=== PATIENT | female | born 1970 ===

== ENCOUNTER 2018-09-07 17:40 | Emergency (ER) | payer MEDICAID, OTHER ==
[2018-09-07 17:40] VITALS: BMI 37.8
[2018-09-07 18:21] LABS: HCG,QUALITATIVE URINE NEGATIVE (NEGATIVE)
[2018-09-07 18:35] LABS: SQUAMOUS EPITHIAL 3 /hpf (0-5); URINE BACTERIA RARE (<OCC); URINE BILIRUBIN NEGATIVE (NEGATIVE); URINE BLOOD NEGATIVE (NEGATIVE); URINE CLARITY Clear (Clear); URINE COLOR Yellow (YELLOW); URINE GLUCOSE (UA) NORMAL (Normal); URINE LEUKOCYTE ESTERASE NEG Leu/uL (Negative); URINE PROTEIN NEGATIVE (NEGATIVE)
--- NOTE | 2018-09-07 20:17 | C.PDOC ---
History Of Present Illness 48 year old female, with history of left ovarian cyst, presents to the ED for evaluation of right-sided pelvic pain radiating to back for 3 days. Patient is also complaining of constipation and light vaginal discharge. Patient states she has been sexually active with one partner. She denies fever, chills, changes in appetite/PO intake. Time Seen by Provider: 09/07/18 18:40 Chief Complaint (Nursing): Female Genitourinary History Per: Patient History/Exam Limitations: no limitations Onset/Duration Of Symptoms: Days (3) Quality Of Discomfort: "Pain" Associated Symptoms: Constipation. denies: Fever, Chills Additional History Per: Patient Past Medical History Reviewed: Historical Data, Nursing Documentation, Vital Signs Vital Signs: Last Vital Signs Temp 98.4 F 09/07/18 17:51 Pulse 89 09/07/18 17:51 Resp 20 09/07/18 17:51 BP 138/84 09/07/18 17:51 Pulse Ox 98 09/07/18 17:51 - Medical History PMH: No Chronic Diseases, Gastritis, Gall Bladder Disease Denies: Depression, Chronic Kidney Disease Surgical History: Cholecystectomy, Endoscopy - [facility] Procedures APPLICATION OF SPLINT (10/09/06) BREAST DX PROCEDURE NEC (02/01/14) DX ULTRASOUND-THORAX NEC (02/01/14) EXCIS KNEE SEMILUN CARTL (08/29/14) INJECT/INFUSE NEC (12/17/13) LAPAROSCOPIC CHOLECYSTECTOMY (12/20/05) LOC EXC BONE LES FEMUR (08/29/14) LOC EXC BONE LES PATELLA (08/29/14) LOCAL EXCIS BREAST LES (02/01/14) OTHER MISC PROCEDURE (05/02/00) PERCUTAN NEEDLE BIOPSY OF BREAST (01/20/14) PRESSURE DRESSING APPLIC (08/16/02) Family History: States: Unknown Family Hx - Social History Hx Tobacco Use: No Hx Alcohol Use: Yes Hx Substance Use: No - Immunization History Hx Tetanus Toxoid Vaccination: No Hx Influenza Vaccination: No Hx Pneumococcal Vaccination: No Review Of Systems Constitutional: Negative for: Fever, Chills Genitourinary: Positive for: Pelvic Pain (right-sided ) Musculoskeletal: Positive for: Back Pain Physical Exam - Physical Exam Appears: Non-toxic, No Acute Distress, Other (lying on bed, comfortable ) Skin: Normal Color, Warm, Dry Head: Atraumatic, Normacephalic Eye(s): bilateral: Normal Inspection Oral Mucosa: Moist Neck: Supple Chest: Symmetrical, No Deformity, No Tenderness Cardiovascular: Rhythm Regular, No Murmur Respiratory: Normal Breath Sounds, No Rales, No Rhonchi, No Wheezing Gastrointestinal/Abdominal: Soft, No Tenderness, No Guarding, No Rebound, Other ( scar ) Pelvic: Vaginal Discharge (white ), No Cervical Motion Tenderness, Adnexal Tenderness (mild, right-sided ), 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, 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 ) Extremity: Normal ROM, Capillary Refill (less than 2 seconds ) Neurological/Psych: Oriented x3, Normal Speech, Normal Cognition ED Course And Treatment - Laboratory Results Lab Results: Urine Color Yellow (YELLOW) 09/07/18 18:06 Urine Clarity Clear (Clear) 09/07/18 18:06 Urine pH 6.0 (5.0-8.0) 09/07/18 18:06 Ur Specific [place] 1.021 (1.003-1.030) 09/07/18 18:06 Urine Protein Negative mg/dL (NEGATIVE) 09/07/18 18:06 Urine Glucose (UA) Normal mg/dL (Normal) 09/07/18 18:06 Urine Ketones Negative mg/dL (NEGATIVE) 09/07/18 18:06 Urine Blood Negative (NEGATIVE) 09/07/18 18:06 Urine Nitrate Negative (NEGATIVE) 09/07/18 18:06 Urine Bilirubin Negative (NEGATIVE) 09/07/18 18:06 Urine Urobilinogen 2.0 mg/dL (0.2-1.0) H 09/07/18 18:06 Ur Leukocyte Esterase Neg Savi/uL (Negative) 09/07/18 18:06 Urine WBC (Auto) < 1 /hpf (0-5) 09/07/18 18:06 Urine RBC (Auto) 1 /hpf (0-3) 09/07/18 18:06 Ur Squamous Epith Cells 3 /hpf (0-5) 09/07/18 18:06 Urine Bacteria Rare (<OCC) 09/07/18 18:06 Urine HCG, Qual Negative (NEGATIVE) 09/07/18 18:06 Urine HCG, Qual Negative (NEGATIVE) 09/07/18 18:06 O2 Sat by Pulse Oximetry: 98 (on RA) Pulse Ox Interpretation: Normal Medical Decision Making Medical Decision Making: Progress: GC/Chlamydia swab and urinalysis ordered and reviewed. 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 [facility] - call for appointment for followup evaluation and for annual exam. Ibuprofen for pain. Miralax for diarrhea. Use Metrogel in vagina at bedtime for next week. Do not drink alcohol. 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 - Scribe Statement The provider has reviewed the documentation as recorded by the Scribe (Sirisha Scott) All medical record entries made by the Scribe were at my direction and personally dictated by me. I have reviewed the chart and agree that the record accurately reflects my personal performance of the history, physical exam, medical decision making, and the department course for this patient. I have also personally directed, reviewed, and agree with the discharge instructions and disposition.
[2018-09-07 20:28] VITALS: BP 130/80; PULSE 80; RESP 14; TEMP 98
[2018-09-07 21:30] VITALS: O2SAT 98
== END 2018-09-07 20:28 | disposition home or self-care (01) ==
LOC: C.ER 17:40
DX: N76.0 Acute vaginitis (principal); K59.00 Constipation, unspecified; R10.2 Pelvic and perineal pain